=== PATIENT | female | born 1995 | race Caucasian/White ===

== ENCOUNTER 2025-02-10 15:00 | Emergency (ER) | payer BC, MEDICAID, SELFPAY ==
--- NOTE | 2025-02-10 15:10 | ECG_ITS ---
[facility] Test Date: 2025-02-10 Pat Name: Kim Ferrer Department: Room: Gender: Female [employer]: : [id number] Requested By: Jamie Ivan Order Number: [id number] Anderson MD: Yesy Damon M.D. Measurements Intervals [place] Rate: 88 P: 60 TN: 149 QRS: 82 QRSD: 93 T: 72 QT: 350 QTc: 424 Interpretive Statements SINUS RHYTHM No previous ECG available for comparison Electronically Signed On 02-19-2025 09:23:41 CDT by Yesy Damon M.D. [email or web address]
[2025-02-10 15:12] VITALS: BP 117/74; PULSE 99; RESP 16; TEMP 37.1; O2SAT 98; BMI 22.4
== END 2025-02-10 17:46 | disposition left against medical advice (07) ==
PROVIDERS: Emergency Provider Family Medicine
DX: Z01.89 Encounter for other specified special examinations (principal); Z53.21 Procedure and treatment not carried out due to patient leaving prior to being seen by health care provider
CPT/HCPCS: 93005